=== PATIENT | male | born 1955 | race Caucasian/White ===

== ENCOUNTER 2018-12-26 23:34 | Emergency (ER) | payer MEDICARE, MEDICAID ==
[~2018-12-26] VITALS: Ht 180.3 cm; Wt 99.8 kg
[2018-12-27] MEDS ORDERED: HYDROcodone-ACET 5/325MG TAB PO ONE (05:15)
[2018-12-27 05:23] VITALS: BP 139/87
[2018-12-27] MEDS ORDERED: BACLOFEN 10 MG TAB PO ONE (05:30)
== END 2018-12-27 05:41 | disposition home or self-care (01) ==
LOC: ER 23:34
DX: F11.20 Opioid dependence, uncomplicated (principal); M54.9 Dorsalgia, unspecified; Z51.5 Encounter for palliative care; Z76.0 Encounter for issue of repeat prescription